=== PATIENT | male | born 1955 | race Caucasian/White ===

== ENCOUNTER 2017-05-23 19:44 | Inpatient (IN) | payer OTHER ==
[~2017-05-23] VITALS: Ht 182.9 cm; Wt 94.3 kg
--- NOTE | ~2017-05-23 | DS ---
Discharge Summary [place] [id number] [facility] [place]. [address] NAME: DESMOND HOWARD : 59 STATUS : ADM IN PAT#: [id number] AGE: 62 ADM/REG DATE : 05/24/17 MR#: [id number] REPORT SERV DATE: 05/24/17 DICTATED BY: Santo CERRATO DATE: 05/24/17 REPORT STATUS : Draft TRANSCRIBED BY: MODKaveh DATE: 05/24/17 ADMISSION DATE: 05/24/2017 DISCHARGE DATE: 05/24/2017 DIAGNOSES AT DISCHARGE: Hepatorenal syndrome, cirrhosis, nonalcoholic steatohepatitis, metabolic acidosis. CONSULTS: Hepatology. PROCEDURES: None. BRIEF HOSPITAL COURSE: A 62-year-old male patient with ROWELL and underlying cirrhosis, who presents with hepatorenal syndrome, started on a combination of Sandostatin, IV albumin, ProAmatine, IV volume resuscitation with consultation to Nephrology. After evaluation of his data and a MELD score of 36, decision was made to transfer emergently to [facility]. He will leave today for further evaluation of his hepatorenal syndrome and consideration for transplant. DISCHARGE MEDICATIONS: The patient's discharge medications will be as follows: Cholestyramine 4 g b.i.d., Benadryl 25 at bedtime p.r.n., folic acid 1 daily, Sandostatin 200 mcg q.8 hours, rifaximin 550 mg b.i.d., thiamine 100 mg daily, ursodiol 250 mg 2 tablets twice a day, ProAmatine 5 mg three times a day, Colace 100 twice a day, Zofran 4 mg q.4 hours p.r.n., oxycodone immediate release 5 mg every four hours p.r.n. Further recommendations for treatment pending evaluation at [facility]. HARPREET/LAMONT Santo Cerrato M.D. / [id number] CC: Kevin Casas
--- NOTE | ~2017-05-23 | HP ---
History And Physical [place] [id number] [facility] [place]. [address] NAME: DESMOND HOWARD : 59 STATUS : ADM IN PAT#: [id number] AGE: 62 ADM/REG DATE : 05/24/17 MR#: [id number] REPORT SERV DATE: 05/24/17 DICTATED BY: NATALIA LACY DATE: 05/23/17 REPORT STATUS : Draft TRANSCRIBED BY: MODL DATE: 05/23/17 DATE OF ADMISSION: 05/24/2017 CHIEF COMPLAINT: Shortness of breath. HISTORY OF PRESENT ILLNESS: A 62-year-old white male with history of ROWELL, was sent to the emergency room by his predatory hunter, Dr. Corwin Looney. The patient has had progressive liver failure. He had been hospitalized three weeks ago overnight at [facility], where his stone was removed via ERCP from his bile duct. Since then, his bilirubin has progressively increased to 23 today. The patient has had no known nausea or vomiting, but has noted that he has been progressively yellow and his food does not taste good anymore. He states that he did have some acute renal failure about three years ago, which was reversed after consultation with Dr. Rand. PAST MEDICAL HISTORY: Significant for hypertension, sleep apnea, ROWELL, hypothyroidism, and hypertension. PAST SURGICAL HISTORY: Cholecystectomy, bilateral total knee replacement, pallor, carpal tunnel repair, back surgery, right rotator cuff repair with resulting Staph infection, cataract surgery, and left knee patella repair. SOCIAL HISTORY: No cigarettes, alcohol, or illicit drug use. He is a retired upholster. He is . Lives with his . The patient is a full code. FAMILY HISTORY: Mom of CVA. Dad of old age. ALLERGIES: THE PATIENT HAS NO KNOWN DRUG ALLERGIES. MEDICATIONS: Medications at home are cholestyramine 4 g one packet b.i.d., Norvasc 5 mg daily, Benadryl 50 mg q.h.s., [place] 10/25 one tab b.i.d. as needed, levothyroxine 250 mcg daily, prednisone 40 mg daily, and ursodiol 500 mg b.i.d. REVIEW OF SYSTEMS: CONSTITUTIONAL: No fever, sweats, or rigors. EYES: No blurred or double vision, vision loss, or glaucoma. HEENT: No headache, hearing loss, or tinnitus. He has noticed a change in his voice. CARDIOVASCULAR: No chest pain, palpitations, or syncope. He has noted some dyspnea on exertion. No edema. RESPIRATORY: There has been a cough. No wheezing. No pleuritic pain. GASTROINTESTINAL: No nausea, vomiting, hematemesis, or abdominal pain. MUSCULOSKELETAL: He does have arthralgia, arthritis, or chronic back pain. INTEGUMENT: No rash or suspicious skin lesions. NEUROLOGIC: No memory loss or gait disturbance. There has been some weakness. HEMATOLOGIC: No anemia, iron deficiency, or B12 deficiency. PSYCHIATRIC: No depression, bipolar, or anxiety. : No dysuria, hematuria, or nephrolithiasis. History And Physical [address] [address] NAME: DESMOND HOWARD : 59 STATUS : ADM IN [facility]#: [id number] AGE: 62 ADM/REG DATE : 05/24/17 MR#: [id number] REPORT SERV DATE: 05/24/17 DICTATED BY: NATALIA LACY DATE: 05/23/17 REPORT STATUS : Draft TRANSCRIBED BY: LAMONT DATE: 05/23/17 ENDOCRINE: No diabetes. Does have thyroid disease. PHYSICAL EXAMINATION: VITAL SIGNS: Blood pressure 113/78, temp 98, pulse 72, respiration 18, and O2 saturation is 100% on room air. CONSTITUTIONAL: Alert, appropriate. PSYCHIATRIC: Oriented x3. Memory intact. Affect appropriate. HEENT: Atraumatic, normocephalic. Dry mucous membranes. Oral palate without lesion. EYES: Pupils reactive. He has markedly icteric sclerae. Conjunctivae clear. NECK: No adenopathy. Supple. No thyromegaly or masses. RESPIRATORY: Decreased breath sounds at bases. No chest wall tenderness. CARDIOVASCULAR: Regular rate and rhythm. No audible murmurs. No carotid or femoral bruits. Distal pulse intact. ABDOMEN: Mildly distended. Not tender. Bowel sounds are present. There is no guarding. SKIN: No rash or suspicious lesions. He does appear to have markedly dry skin. NEUROLOGIC: He moves all four extremities. He has some asterixis. LYMPHATIC: No adenopathy in the neck, axilla, or femoral region. MUSCULOSKELETAL: Range of motion intact in upper and lower extremities. DATA: CT scan reveals no evidence of ascites. CT of the abdomen and pelvis showed cirrhosis and DJD of the spine. Sodium 139, potassium 4.5, BUN 93, creatinine 2.81, bilirubin 23, ALT 976, AST 758. White blood cell count 16, hemoglobins 14, and platelets 269. Troponin less than 0.2. PT/INR; PT 21.8, INR 1.9. IMPRESSION/PLAN: 1. Liver failure, hepatorenal syndrome. We will give IV fluids. We will consult both Hepatology and Nephrology. 2. Nonalcoholic steatohepatitis. 3. Hypertension. 4. Chronic back pain. We will use oxycodone instead of [place] in an attempt to avoid Tylenol. NGM/MODL Natalia Lacy MD / [id number] CC: Kevin Casas
[~2017-05-23 19:44] MED LIST: LEVOTHYROXIN175 MCG PO; NORCO1 TAB PO; NORV5 PO
[2017-05-23 20:44] LABS: MEAN PLATELET VOLUME 10.2 fL (9.2-13.0); PLATELET COUNT 269 10/3/uL (150-400); RED CELL COUNT 4.14 10/6/uL (4.7-6.1)
[2017-05-23 20:46] LABS: HEMATOCRIT 39.7 % (40.0-51.0); MANUAL DIFF NO %; MEAN CORPUS HGB CONC 35.3 g/dL (32.0-36.0); MEAN CORPUSCULAR HEMOGLOB 33.8 pg (26.0-34.0); MEAN CORPUSCULAR VOLUME 95.9 fL (80-100); RBC DISTRIBUTION WIDTH 17.4 % (12.0-16.0)
[2017-05-23 21:01] LABS: INTERNATIONAL NORMAL RATI 1.9 UNITS (-); PARTIAL THROMBO TIME 35.5 SEC (22.5-37.2)
[2017-05-23 21:02] LABS: PROTIME (NOT ORD) 21.8 SEC (12.0-14.5)
[2017-05-23 21:11] LABS: ALBUMIN 2.6 G/DL (3.5-5.0); CALCIUM, SERUM 8.8 MG/DL (8.5-10.4); CHLORIDE, SERUM 112 MMOL/L (96-112); GLUCOSE, SERUM 111 MG/DL (60-99); POTASSIUM, SERUM 4.5 MMOL/L (3.5-5.3); SGPT(ALT) 976 U/L (5-65); SODIUM, SERUM 139 MMOL/L (135-148)
[2017-05-23 21:16] LABS: ANISOCYTOSIS 1+ (5-10/OIF) (0-5/OIF); BAND NEUTROPHILS 2 %; BUN (BLOOD UREA NITROGEN) 93 MG/DL (6-23); CO2 (CARBON DIOXIDE) 13 MMOL/L (24-34); MICROCYTES 1+ (5-10/OIF) (0-5/OIF); PLATELET ESTIMATE ADQ (ADEQUATE); TOTAL NUCLEATED CELLS 100
[2017-05-23 21:17] LABS: A/G RATIO 0.6 (0.7-1.9); ALKALINE PHOSPHATASE 319 U/L (45-117); CREATININE 2.81 MG/DL (0.70-1.30); GFR AFRICAN AMERICAN 27 ML/MIN (>=60); GFR NON AFRICAN AMERICAN 23 ML/MIN (>=60); GLOBULIN 4.2 G/DL (2.5-4.1); SGOT(AST) 758 U/L (5-40); TOTAL BILIRUBIN 23.1 MG/DL (0-1.2); TOTAL PROTEIN 6.8 G/DL (6.0-8.5)
[2017-05-23] MEDS ORDERED: NORCO1 TAB PO (22:00)
[2017-05-23] MEDS ORDERED: NORV5 PO (22:00)
[2017-05-23] MEDS ORDERED: SYN125 PO (22:01)
[2017-05-23] MEDS ORDERED: URSO250 PO (22:01)
[2017-05-23] MEDS ORDERED: BEN25 PO (22:02)
[2017-05-23] MEDS ORDERED: PREVALITE4 G1 PO (22:02)
[2017-05-23] MEDS ORDERED: P20 PO (22:02)
[2017-05-24 06:10] LABS: HEMATOCRIT 38.7 % (40.0-51.0); HEMOGLOBIN 13.9 g/dL (13.6-17.8); MANUAL DIFF YES %; MEAN CORPUS HGB CONC 35.9 g/dL (32.0-36.0); MEAN CORPUSCULAR HEMOGLOB 33.6 pg (26.0-34.0); MEAN CORPUSCULAR VOLUME 93.5 fL (80-100); MEAN PLATELET VOLUME 10.2 fL (9.2-13.0); PLATELET COUNT 218 10/3/uL (150-400); RBC DISTRIBUTION WIDTH 17.4 % (12.0-16.0); RED CELL COUNT 4.14 10/6/uL (4.7-6.1); WHITE BLOOD CELLS 14.3 10/3/uL (4.5-10.5)
[2017-05-24 06:19] LABS: ASCORBIC ACID (UR NOT ORDER) NEG (NEG); BILIRUBIN, URINE NEGATIVE (NEG); KETONE, URINE NEGATIVE (NEG); LEUKOCYTE ESTERASE(NOT OR NEG (NEG); WBC (NOT ORDERED) (RFLEX) 1 (0-5)
[2017-05-24 06:30] LABS: BAND NEUTROPHILS 3 %; IMMATURE GRANS ABSOLUTE (CALC) 0.57 10/3/uL (0.0-0.11); LYMPHOCYTES 3 %; LYMPHOCYTES ABSOLUTE (CALC) 0.43 10/3/uL (0.67-4.30); METAMYELOCYTES 4 %; MONOCYTES 6 %; MONOCYTES ABSOLUTE (CALC) 0.86 10/3/uL (0.21-1.20); NEUTROPHILS ABSOLUTE (CALC) 12.44 10/3/uL (2.02-8.40); SEGMENTED NEUTROPHIL (0) 84 %; TOTAL NUCLEATED CELLS 100
[2017-05-24 06:32] LABS: ANISOCYTOSIS 1+ (5-10/OIF) (0-5/OIF); PLATELET ESTIMATE ADQ (ADEQUATE)
[2017-05-24 06:42] LABS: ALBUMIN 2.5 G/DL (3.5-5.0); CALCIUM, SERUM 8.9 MG/DL (8.5-10.4); CHLORIDE, SERUM 109 MMOL/L (96-112); CREATININE 3.03 MG/DL (0.70-1.30); GFR AFRICAN AMERICAN 25 ML/MIN (>=60); GFR NON AFRICAN AMERICAN 21 ML/MIN (>=60); GLUCOSE, SERUM 96 MG/DL (60-99); SGPT(ALT) 998 U/L (5-65); SODIUM, SERUM 136 MMOL/L (135-148); ULTRASENSITIVE TSH 0.095 MCIU/ML (0.358-3.740)
[2017-05-24 06:43] LABS: CO2 (CARBON DIOXIDE) 8 MMOL/L (24-34)
[2017-05-24 06:44] LABS: A/G RATIO 0.6 (0.7-1.9); ALKALINE PHOSPHATASE 303 U/L (45-117); BUN (BLOOD UREA NITROGEN) 105 MG/DL (6-23); GLOBULIN 3.9 G/DL (2.5-4.1); TOTAL BILIRUBIN 22.5 MG/DL (0-1.2); TOTAL PROTEIN 6.4 G/DL (6.0-8.5)
[2017-05-24 06:45] LABS: SGOT(AST) 752 U/L (5-40)
[2017-05-24 12:23] LABS: ALBUMIN 2.8 G/DL (3.5-5.0); CALCIUM, SERUM 8.1 MG/DL (8.5-10.4); CHLORIDE, SERUM 110 MMOL/L (96-112); CREATININE 3.28 MG/DL (0.70-1.30); GFR AFRICAN AMERICAN 22 ML/MIN (>=60); GFR NON AFRICAN AMERICAN 19 ML/MIN (>=60); SGPT(ALT) 946 U/L (5-65); SODIUM, SERUM 134 MMOL/L (135-148)
[2017-05-24 12:24] LABS: ALKALINE PHOSPHATASE 275 U/L (45-117); BUN (BLOOD UREA NITROGEN) 106 MG/DL (6-23); CO2 (CARBON DIOXIDE) 6 MMOL/L (24-34); GLUCOSE, SERUM 137 MG/DL (60-99); POTASSIUM, SERUM 4.4 MMOL/L (3.5-5.3)
[2017-05-24 12:25] LABS: A/G RATIO 0.7 (0.7-1.9); GLOBULIN 3.8 G/DL (2.5-4.1); SGOT(AST) 651 U/L (5-40); TOTAL PROTEIN 6.6 G/DL (6.0-8.5)
[2017-05-24 16:34] LABS: ER DIFF TAT 19 Hrs 56 Mins; LYMPHOCYTES 6 %; LYMPHOCYTES ABSOLUTE (CALC) 0.96 10/3/uL (0.67-4.30); METAMYELOCYTES 2 %; MONOCYTES 1 %; MONOCYTES ABSOLUTE (CALC) 0.16 10/3/uL (0.21-1.20); MYELOCYTES 3 %; NEUTROPHILS ABSOLUTE (CALC) 14.08 10/3/uL (2.02-8.40); SEGMENTED NEUTROPHIL (0) 86 %
== END 2017-05-24 13:04 | disposition short-term general hospital (02) | DRG 441 ==
LOC: ER 19:44 → 2SO 05-24 00:22
PROVIDERS: Internal Medicine; Internal Medicine Hepatology; Physician Assistant; Specialist
DX: K72.90 Hepatic failure, unspecified without coma (principal); K76.7 Hepatorenal syndrome; N17.9 Acute kidney failure, unspecified; E87.2 Acidosis; K75.81 Nonalcoholic steatohepatitis (NASH); E03.9 Hypothyroidism, unspecified; I10 Essential (primary) hypertension; M54.9 Dorsalgia, unspecified; G89.29 Other chronic pain; K71.3 Toxic liver disease with chronic persistent hepatitis; Z96.653 Presence of artificial knee joint, bilateral; Z98.890 Other specified postprocedural states; Z86.73 Personal history of transient ischemic attack (TIA), and cerebral infarction without residual deficits; Z82.3 Family history of stroke
CPT/HCPCS: 71020; 74176; 80053; 81001; 82140; 83735; 83880; 84443; 84484; 85025; 85610; 85730; 87040; 93005; 96374; 99285; A9270-GY; J0360; J1940; P9047